=== PATIENT | male | born 2005 | race Caucasian/White ===

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

== ENCOUNTER 2024-09-12 16:49 | Emergency (ER) | payer MEDICAID, OTHER ==
[~2024-09-12] VITALS: Ht 180.3 cm; Wt 79.5 kg
[~2024-09-12 16:49] MED LIST changes: -FLUO-176 PO; +FLUO-341 PO
[2024-09-12 17:05] VITALS: TEMP 99.9
[2024-09-12 19:25] VITALS: BP 126/60; PULSE 97; RESP 18; O2SAT 99
[2024-09-12] MEDS: CefTRIAXone SODIUM 1 GM/VIAL IM ONE (19:39)
[2024-09-12] MEDS: DOXYCYCLINE HYCLATE 100 MG TABLET PO ONE (19:39)
[2024-09-12] MEDS: LIDOCAINE/PF 1% 2 ML VIAL IM ONE (19:39)
[2024-09-12] MEDS ORDERED: DOXY-354 PO (19:43)
== END 2024-09-12 19:57 | disposition home or self-care (01) ==
LOC: EMS 16:49
DX: R36.9 Urethral discharge, unspecified (principal); R30.0 Dysuria; I10 Essential (primary) hypertension; F12.90 Cannabis use, unspecified, uncomplicated; F41.9 Anxiety disorder, unspecified; Z79.899 Other long term (current) drug therapy
CPT/HCPCS: 99283; 87491; 87591; 96372; J0696; J3490

== ENCOUNTER 2025-01-24 14:34 | Emergency (ER) | payer OTHER ==
[~2025-01-24] VITALS: Ht 182.9 cm; Wt 79.5 kg
[~2025-01-24 14:34] MED LIST changes: +DOXY-354 PO
[2025-01-24 14:35] VITALS: TEMP 98.2
[2025-01-24] MEDS ORDERED: IBUP-1554 PO (16:31)
[2025-01-24] MEDS ORDERED: ACET-66 PO (16:31)
[2025-01-24 16:45] VITALS: BP 119/74; PULSE 85; RESP 17; O2SAT 98
== END 2025-01-24 17:18 | disposition home or self-care (01) ==
LOC: EMS 14:35
DX: R07.89 Other chest pain (principal); F12.90 Cannabis use, unspecified, uncomplicated
CPT/HCPCS: 71045; 99283

== ENCOUNTER 2025-06-10 | Emergency (ER) | payer MEDICAID, OTHER ==
[~2025-06-10] VITALS: Ht 180.3 cm; Wt 70.9 kg
[~2025-06-10] MED LIST changes: +ACET-66 PO; -DOXY-354 PO; -FLUO-341 PO; +IBUP-1554 PO; -PROZ20 PO
[2025-06-10 00:13] VITALS: BP 90/49; PULSE 62; RESP 15; TEMP 97.8; O2SAT 100
[2025-06-10] MEDS: ACETAMINOPHEN 500 MG TABLET PO ONE (00:43)
[2025-06-10] MEDS: IBUPROFEN 400 MG TABLET PO ONE (00:43)
[2025-06-10] MEDS ORDERED: ONDA-104 PO (00:57)
== END 2025-06-10 01:03 | disposition home or self-care (01) ==
LOC: EMS 00:27
DX: M25.511 Pain in right shoulder (principal); R11.2 Nausea with vomiting, unspecified; F12.90 Cannabis use, unspecified, uncomplicated
CPT/HCPCS: 99283